=== PATIENT | female | born 1935 | race Caucasian/White ===

== ENCOUNTER 2017-05-18 11:34 | Emergency (ER) | payer MEDICARE, OTHER ==
[~2017-05-18] VITALS: Ht 157.5 cm; Wt 74.0 kg
[~2017-05-18 11:34] MED LIST: ASPIRIN EC81 MG PO; ATENOLOL50 MG PO; ATORVASTATIN CA40 MG PO; AUGMENTIN 875-1 EACH PO; CEPHALEXIN500 MG PO; ELIQUIS5 MG PO; FLUOXETINE HCL20 MG PO; FUROSEMIDE40 MG PO; ISOSORBIDE MON120 MG PO; LANOXIN125 MCG PO; LOPERAMIDE2 M1 PO; METOPROLOL SUC100 MG PO; NITROGLYCERIN0.4 MG SL; OMEPRAZOLE40 MG PO; POTASSIUM CHLOR8 MEQ PO; TRAMADOL HCL50 MG PO; VITAMIN D400 UNIT PO; VITAMIN D5000 UNIT PO
[2017-05-18] MEDS ORDERED: BUDESONIDE0.5 MG/2 M INH (11:47)
[2017-05-18] MEDS ORDERED: TORSEMIDE20 MG PO (11:48)
[2017-05-18] MEDS ORDERED: TRAZODONE HCL50 MG PO (11:48)
[2017-05-18] MEDS ORDERED: DIGITEK125 MCG PO (11:48)
[2017-05-18] MEDS ORDERED: ALBUTEROL2.5 MG/3 M INH (11:48)
[2017-05-18] MEDS ORDERED: PERFOROMIS20 MCG/2 M INH (11:49)
== END 2017-05-18 11:59 | disposition home or self-care (01) ==
LOC: ED 11:34
DX: M79.604 Pain in right leg (principal); Z00.8 Encounter for other general examination

== ENCOUNTER 2017-11-19 18:33 | Emergency (ER) | payer MEDICARE, OTHER ==
[~2017-11-19] VITALS: Ht 157.5 cm; Wt 73.9 kg
[~2017-11-19 18:33] MED LIST changes: +ALBUTEROL2.5 MG/3 M INH; +BUDESONIDE0.5 MG/2 M INH; +DIGITEK125 MCG PO; +PERFOROMIS20 MCG/2 M INH; +TORSEMIDE20 MG PO; +TRAZODONE HCL50 MG PO
[2017-11-19] MEDS ORDERED: KEFLEX500 MG PO (21:52)
--- NOTE | 2017-11-20 13:56 | EKG ---
[facility] [address] [place] [address] Signed Atrial fibrillation Right bundle branch block T wave abnormality, consider inferior ischemia Abnormal ECG When compared with ECG of 24-OCT-2016 19:49, T wave inversion no longer evident in Anterior leads Confirmed by MITESH GARCIA MD ([id number]) on 11/20/2017 1:56:31 PM Electronically Signed By: MITESH GARCIA MD 11/20/17 1356 PATIENT NAME: MAURICE JOLLEY Electrocardiogram DATE OF : 39 PHYSICIAN: MITESH GARCIA MD REPORT #: [id number] REPORT IS CONFIDENTIAL AND NOT TO BE RELEASED WITHOUT AUTHORIZATION
== END 2017-11-19 22:28 | disposition home or self-care (01) ==
LOC: ED 18:33
DX: N39.0 Urinary tract infection, site not specified (principal); R41.82 Altered mental status, unspecified; I10 Essential (primary) hypertension; E78.5 Hyperlipidemia, unspecified; K21.9 Gastro-esophageal reflux disease without esophagitis; I48.91 Unspecified atrial fibrillation; J44.9 Chronic obstructive pulmonary disease, unspecified; Z88.2 Allergy status to sulfonamides; Z88.5 Allergy status to narcotic agent; Z79.01 Long term (current) use of anticoagulants; Z79.899 Other long term (current) drug therapy
CPT/HCPCS: 36415; 70450; 71045; 74176; 80053; 81001; 85025; 85610; 85730; 87088; 93005; 93010; 96374; 99284; J0696

== ENCOUNTER 2017-12-23 23:54 | Emergency (ER) | payer MEDICARE, OTHER ==
[~2017-12-23] VITALS: Ht 157.5 cm; Wt 73.9 kg
[~2017-12-23 23:54] MED LIST changes: +KEFLEX500 MG PO
[2017-12-24] MEDS ORDERED: BISOPROLOL FUMAR5 MG PO (00:15)
[2017-12-24] MEDS ORDERED: ASPIR 8181 MG PO (00:15)
[2017-12-24] MEDS ORDERED: NORCO 5-325 TA1 EACH PO (00:53)
[2017-12-24] MEDS ORDERED: CEFUROXIME250 MG PO (14:21)
== END 2017-12-24 01:49 | disposition home or self-care (01) ==
LOC: ED 23:54
PROC: 2W3MX1Z Immobilization of Left Lower Extremity using Splint (ICD-10-PCS; principal; 2017-12-23)
DX: S52.502A Unspecified fracture of the lower end of left radius, initial encounter for closed fracture (principal); F03.90 Unspecified dementia, unspecified severity, without behavioral disturbance, psychotic disturbance, mood disturbance, and anxiety; I10 Essential (primary) hypertension; J44.9 Chronic obstructive pulmonary disease, unspecified; I48.91 Unspecified atrial fibrillation; Z88.2 Allergy status to sulfonamides; Z88.5 Allergy status to narcotic agent; Z88.8 Allergy status to other drugs, medicaments and biological substances; Z79.82 Long term (current) use of aspirin; Z79.899 Other long term (current) drug therapy; W19.XXXA Unspecified fall, initial encounter
CPT/HCPCS: 29125; 73110; 99283

== ENCOUNTER 2017-12-27 10:43 | Inpatient (IN) | payer MEDICARE, OTHER ==
[~2017-12-27] VITALS: Ht 157.5 cm; Wt 72.8 kg
[~2017-12-27 10:43] MED LIST changes: +ASPIR 8181 MG PO; +BISOPROLOL FUMAR5 MG PO; +CEFUROXIME250 MG PO; +NORCO 5-325 TA1 EACH PO
--- NOTE | 2017-12-27 15:46 | NUR ---
DAUGHTER AT BEDSIDE KEEPING PATIENT FROM PULLING AT CAST AND OTHER ITEMS. VERY RESTLESS. GRIMACE FROM LEFT ARM PAIN. ATTENDS IN PLACE. SOCIAL GROUP WORKER ON RIGHT HAND. 100% ON 1L 02. SOFT FOOD ORDERED FROM KITCHEN. TOP DENTURES MISSING. LR @ 75 INFUSING.
--- NOTE | 2017-12-27 16:35 | NUR ---
2PA TRANSFER TO BSC. DIFFICULTY FOLLOWING DIRECTIONS. PATIENT CHATTERING RANDOM SAYINGS CONSISTENTLY. C/O PAIN IN LEFT ARM. GIVEN TYLENOL. WILL GIVE TRAMADOL. ABLE TO URINATE ON BSC SUCCESSFULLY. NEW ATTENDS PLACED. NYSTATIN CREAM APPLIED TO GROIN.
--- NOTE | 2017-12-27 16:59 | NUR ---
pt becoming increasingly agitated and restless. 0.5mg ativan given IV for anxiety. hospitalist aware. patient tearful. multiple family members in room assisting with patient. patient pulling at wrapping of cast and other dressings. trying to get oob.
--- NOTE | 2017-12-27 17:51 | NUR ---
PATIENT HAS SEVERE DEMENTIA. 1:1 WITH FAMILY OR STAFF. PULLS AT ALL DRESSING, TUBING, ETC. FROM [facility]. WILL NEED MORE INTENSIVE SNF AT D/C. LR @ 75. LEFT ARM IN CAST D/T FRACTURE. PULLS AT CAST WRAPPING. ROOM AIR NOW. REGULAR DIET- SOFT FOOD D/T UPPER DENTURES NOT IN. FEEDER. YEAST INFECTION IN GROIN. NYSTATIN CREAM AT BEDSIDE. PLAN FOR SURGERY FRIDAY BY DR LENZ ON LEFT ARM. KARRIE ACOSTA, ANTONIO, AND VICENTA GIVEN.
--- NOTE | 2017-12-27 18:29 | NUR ---
FAMILY REPORTS PATIENT MORE MANAGEABLE NOW. STILL RESTLESS.
--- NOTE | 2017-12-27 19:10 | NUR ---
bedside report from larissa cha. family in rm and introduced. white board updated, and pt bed alarm on, she has eyes closed and is restless in bed, iv r arm wrapped and fusing on pump, left arm pwd- good cms - melinda wraped in cast for pre hospital left arm fx. pt has dementia and in facility - appears obtunded - family warning this rn that pt is very restless at night and to call them if neede. directly visualized at the desk, and alarm on - appears comfortable at this time. attends clean and dry.
--- NOTE | 2017-12-27 22:02 | NUR ---
DISCUSSED WITH ANALYTICAL SCIENCES DIRECTOR EDDIE - PT RRR, EYES CLOSED - HOLDING PO MEDS UNTIL PT MORE AWAKE.
--- NOTE | 2017-12-27 22:22 | NUR ---
CHARGE NURSE ROUNDING NOTE: PT RESTING, EYES CLOSED, RANJAN, NO DISTRESS NOTED BED ALARM ON, ON ROOM AIR
--- NOTE | 2017-12-27 23:30 | NUR ---
ONEIDA LINCOLN AND I HELPED PATIENT USE THE COMMODE. 2 PA. PATIENT VOIDED. PATIENT IS BACK IN BED. BED ALARM ON. CALL LIGHT WITHIN REACH.
--- NOTE | 2017-12-27 23:45 | NUR ---
pt restless, spilled water - cleaned and new dry linens- pt mumbling unconsolable. trying to chew her o2 sat finger probe. pulling her left arm melinda wrap and cast... denies needs. ativan iv given for agitation - bed alarm on.
--- NOTE | 2017-12-28 01:20 | NUR ---
PT SETTLED DOWN, EYES CLOSED, RRR. CALL LIGHT IN REACH BED ALARM ON, VISIBLE FROM RN STATION.
--- NOTE | 2017-12-28 06:26 | NUR ---
pt restless, 2 person assist to bsc to void. pt mumbles,eyes open - left arm pwd. bed made and back to bed with call light and bed alarm.
--- NOTE | 2017-12-28 07:00 | NUR ---
REPORT RECEIVED FROM SALAZAR AT THIS TIME, PATIENT IS RESTING IN BED WITH HOB ELEVATED, ALARM ON THE BED REMAINS ON AND RAILS ARE ALL UP
--- NOTE | 2017-12-28 08:30 | NUR ---
PATIENT WAS A 1 PERSON PIVOT TO THE COMMODE, SHE VOIDED 300MLS OF YELLOW URINE. MANSI CARE DONE AND PATIENT ASSISTED BACK TO BED, RAILS ALL UP AND ALARM BACK ON THE PATIENT. PATIENT GIVEN AM MEDICATION CRUSHED IN APPLESAUCE AND SHE TOOK ALL OF THEM WITHOUT ANY TROUBLE. PATIENT HAS A DAUGHTER AT THE BEDSIDE THAT HELPED WITH FEEDING THE PATIENT THIS AM.
--- NOTE | 2017-12-28 09:01 | NUR ---
PATIENT PULLING AT HER LEFT ARM, SHE IS NON VERBAL BUT PAIN SCALE SHOWS PAIN LEVEL CURRENTLY AT A 4/10, PATIENT GIVEN 1 NORCO PO FOR PAIN COVERAGE AT THIS TIME.
--- NOTE | 2017-12-28 09:29 | NUR ---
PATIENT 1 PERSON ASSIST UP TO THE COMMODE, PATIENT VOIDED 200MLS OF CLEAR YELLOW URINE.
--- NOTE | 2017-12-28 09:45 | NUR ---
PATIENT PULLED OFF HER SPLINT TO THE LEFT ARM, DOCTOR NICOLE NOTIFIED AND NEW ONE PLACED ON THE PATIENT AT THIS TIME.
--- NOTE | 2017-12-28 10:06 | NUR ---
PATIENT'S SHOWER DONE AT THIS TIME AND LINEN CHANGED, MANSI CARE DONE AND NYSTATIN CREAM APPLIED TO TO THE MANSI AREA.
--- NOTE | 2017-12-28 10:37 | NUR ---
TELE REMOVED AT THIS TIME
--- NOTE | 2017-12-28 11:52 | NUR ---
PATIENT WAS A 2 PERSON ASSIST TO THE BEDSIDE COMMODE AT THIS TIME, SHE HAD A FEAR OF FALLING AND WAS NOT TOLERANT OF THE TRANSFER TO THE COMMODE. PATIENT GIVEN 1 NORCO PO FOR PAIN AT THIS TIME
--- NOTE | 2017-12-28 11:58 | NUR ---
SCD'S PLACED ON THE PATIENT AT THIS TIME, IV FLUID RATE DECREASED TO 15 MLS/HR
--- NOTE | 2017-12-28 12:17 | NUR ---
PATIENT VERY TEARFUL AND LIVING IN THE PAST CURRENTLY, SHE KEEPS STATING THAT SHE IS SCARED, PATIENT GIVEN ATAIVN 0.5MG IV AT THIS TIME.
--- NOTE | 2017-12-28 15:50 | NUR ---
CARE ASSUMED OF PT. PT 2PA TO [facility] TRANSFER. PT VOIDED AND ASSISTED BACK TO BED. PT VERY ANXIOUS AT THIS TIME, CALLING OUT AND KEEPS TRYING TO PUT LEGS OVER EDGE OF THE BED. PT MEDICATED WITH NORCO AND ATIVAN. PT DAUGHTERS AT BEDSIDE SOOTHING PT. BED ALARM ON.
--- NOTE | 2017-12-28 17:30 | NUR ---
PT IN BED, DAUGHTERS AT BEDSIDE. PT DAUGHTER ROCIO HELPING FEED PT DINNER. BED ALARM ON.
--- NOTE | 2017-12-28 19:55 | NUR ---
pt up to bedside commode with 2 person assist. pt fidgeting arms and appears anxious. Pt requires frequent quing and does not follow directions. pt has small amount of urine output. and is assisted back into bed. Pt disorented and does not answere questions appropriatley. pt begans to take melinda wrap bandage off of left arm so it was rewrapped and pt was redirected. pt given fresh water. bed alarm on and pt is in view of [facility] station. pt assessment completed.
--- NOTE | 2017-12-28 20:14 | NUR ---
pt remains fidgeting and shifts weight back and forth and mumbles unintelligably. prn ativan 0.5 mg administered slow ivp.
--- NOTE | 2017-12-28 20:45 | NUR ---
pt still fidgeting in bed and now grimmacing. pt appears to be in pain. prn ultram 50mg and prn tylenol 650mg administered at this time. erin remains at bedside sitting with patient.
--- NOTE | 2017-12-28 21:40 | NUR ---
PT RESTING ON LEFT LATERAL SIDE, EYES CLOSED AND PT APPEARS TO BE IN NO ACUTE DISTRESS. NO FACIAL GRIMMACE NOTED. PT IN VIEW OF NURSING STATION.
--- NOTE | 2017-12-28 22:40 | NUR ---
PT RESTING SUPINE IN BED, EYES CLOSED AND RESPIRATIONS EVEN AND UNLABORED AT 16. PT APPEARS TO BE SLEEPING COMFORTABLY. PT IN VIEW OF NURSING STATION.
--- NOTE | 2017-12-29 00:30 | NUR ---
PT RESTING IN BED, RESPIRATIONS EVEN AND UNLABORED. PT APPEARS TO BE SLEEPING COMFORTABLY. PT IN VIEW OF NURSES STATION.
--- NOTE | 2017-12-29 02:20 | NUR ---
PT RESTING IN BED, RESPIRATIONS EVEN AND UNLABORED AT 20. PT APPEARS TO BE SLEEPING COMFORTABLY AND REMAINS IN VIEW OF NURSING STATION.
--- NOTE | 2017-12-29 03:11 | NUR ---
pt in bed restless, mumbling unintelligably and shifting back and forth in bed. PRN ativan 0.5mg administered for anxiety.
--- NOTE | 2017-12-29 03:45 | NUR ---
pt restless sitting up in bed and grasping left arm. Pt given prn norco 5/325 x 2 tabs crushed in pudding. Lights off for comfort, bed alarm on and pt remains in view of nurses station.
--- NOTE | 2017-12-29 05:04 | NUR ---
PT SLEPT THROUGH MOST OF THE NIGHT. PT RECEIVED PRN IV ATIVAN FOR ANXIETY AND PRN PO PAIN MEDICATION. PT TAKES PO MEDS CRUSED IN PUDDING WITH SIPS OF WATER. PT HAS BEEN CONFUSED AND WAS FREQUENTLY REORIENTED WHEN AWAKE. LR HAS REMAINED TKO. PT AMBULATED TO BEDSIDE COMMODE SEVERAL TIMES WITH TWO PERSON ASSIST.
--- NOTE | 2017-12-29 07:37 | EKG ---
[facility] [address] [place], [place] [address] Signed Atrial fibrillation Right bundle branch block Abnormal ECG When compared with ECG of 24-DEC-2017 14:10, No significant change was found Confirmed by JAZZ RIVERA MD ([id number]) on 12/29/2017 7:37:32 AM Electronically Signed By: JAZZ RIVERA MD 12/29/17 0737 PATIENT NAME: MAURICE JOLLEY Electrocardiogram DATE OF : 39 PHYSICIAN: JAZZ RIVERA MD REPORT #: [id number] REPORT IS CONFIDENTIAL AND NOT TO BE RELEASED WITHOUT AUTHORIZATION
--- NOTE | 2017-12-29 08:53 | NUR ---
MORNING ASSESSMENT AND MEDICATIONS DUE. THIS RN TO BEDSIDE. MD AT BEDSIDE ASSESSING PT. PT RESTLESS AND MOANING IN BED. ASSESSMENT DONE. MEDICATIONS GIVEN (SEE MAR), DAUGHTER ABLE TO FEED PT MEDICATIONS, GIVEN WITH PUDDING. PT ASSISTED UP TO COMODE. BED BATH DONE. NEW GOWN AND LINEN CHANGE DONE. MANSI CARE DONE. PT BACK TO BED. DAUGTHER UPDATED WITH PLAN OF CARE. BED RAILSUP. SIDE RAIL GUARDS IN PLACE. BED ALARM ON.
--- NOTE | 2017-12-29 10:00 | NUR ---
PATIENT HAS DEMENTIA AND IS UNABLE TO ANSWER QUESTIONS. STAFF IN ROOM WITH PATIENT FOR SAFETY. PT IS NON-VERBAL AT THIS TIME.
--- NOTE | 2017-12-29 10:02 | NUR ---
THIS RN TO ROOM TO CHECK ON PT. PT CONTINUES TO SHOW FACES PAIN SCALE OF 7/10. DAUGHTER AT BEDSIDE. DAUGHTER AGREES THAT PT NEEDS PAIN MEDICATION. NORCO GIVEN. ATAVAN GIVEN FOR RESTLESSNESS. PT CONTINUES TO ATTPENT TO CLIMB OUT OF BED. VERY DIFFICULT TO CONSOLE. MD CONSULTED. MD STATES TO GIVEN AN EXTRA 0.5 OF ATAVAN NOW. GIVEN ORDERED. PT BEGINS TO RELAX. DAUGHTER AT BEDSIDE. BED RAILS UP. PILLOWS AND SIDE RAIL CUSION IN PLACE.
--- NOTE | 2017-12-29 10:56 | NUR ---
THIS HYDRAULIC RIVETER AND MATTHEW WELLS ASSISTED TO CHANGE PATIENT'S ATTENDS AND LINENS. MATTHEW WELLS PERFORMED PERICARE AND SKINCARE. PATIENT DRESSED IN CLEAN GOWN. PATIENT CALL LIGHT IN REACH, NO OTHER NEEDS AT THIS TIME.
--- NOTE | 2017-12-29 12:00 | NUR ---
ASSESSMENT DUE. THIS RN TO ROOM. PT DAUGHTER AT BEDSIDE. PT APPEARS MORE COMFORTABLE, MINIMIAL GROANING AND AGGITATION NOTED. PT REFUSING FOOD, SPITTING OUT WHAT DAUGHTER FEEDS HER. ASSESSMENT DONE. BED RAILS UP. CALL LIGHT WITHIN REACH.
--- NOTE | 2017-12-29 12:38 | NUR ---
PT CALL LIGHT ON. PTS DAUGHTER STATES PT NEEDS UP TO RESTROOM. THIS RN AND PERSONNEL TECHNICIAN, KINZA TO PTS ROOM. PT ASSISTED UP TO COMODE. PT VOIDS. DEPENDS CHANGED. PT TRANSFERED TO CHAIR. CHAIR ALARM ON. PT APPEARS CONTENT. NO MOANING OR FIGGITING NOTED. PERSONNEL TECHNICIAN WORKING WITH PT. DAUGHTER AT BEDSIDE NO ADDITIONAL REQUESTS OR COMPLAINTS.
--- NOTE | 2017-12-29 13:23 | NUR ---
DAUGHTER LEAVING BEDSIDE. DAUGHTER REQUESTS LORAZAPAM FOR PT AGGITATION. SEE MAR FOR MEDICATION GIVEN. PT UP TO CHAIR. APPEARS AGGITATED BUT COMFORTABLE. CALL LIGHT WITHIN REACH. CHAIR ALARM ON. DOOR AND CURTAIN OPEN FOR EASY VIEW FROM NURSES STATION.
--- NOTE | 2017-12-29 14:52 | NUR ---
PT ADMINISTERED TWO TABS NORCO AT THIS TIME PT SCORES 7/10 ON NON-VERBAL PAIN SCALE. PT ABLE TO TAKE PILLS WHOLE WITH PUDDING
[2017-12-29] MEDS ORDERED: QUETIAPINE FUMA50 MG PO (16:13)
[2017-12-29] MEDS ORDERED: LORAZEPAM2 MG PO (16:14)
[2017-12-29] MEDS ORDERED: LOPERAMIDE2 M1 PO (16:51)
[2017-12-29] MEDS ORDERED: TYLENOL325 MG PO (16:51)
--- NOTE | 2017-12-29 16:55 | NUR ---
MED REC COMPLETE
--- NOTE | 2017-12-29 17:14 | NUR ---
SPOKE WITH DAUGHTER IN PATIENTS ROOM. PATIENT IS UNABLE TO ANSWER ANY QUESTIONS. DAUGHTER STATES PATIENT HAS DEMENTIA. SHE WAS [facility]NG [facility] AND WAS MOVED TO [facility] FOUR MONTHS AGO. HAS BEEN IN A STEADY DECLINE. PATIENT RECENTLY HAS GONE FROM WALKER TO WHEELCHAIR. HAS HAD SEVERAL FALLS. SHE STATES SHE HAS ARRANGED FOR PATIENT TO MOVE TO A [facility] A DEMENTIA SENIOR LIVING. THEN PATIENT FELL AND WAS BROUGHT HERE WITH THE INJURY. SHE STATES SHE HAS SPOKEN TO THEM, THEY STATE SHE WILL HAVE A ROOM THERE AFTER SURGERY AND REHAB IF IT IS STILL AVAILABLE. DAUGHTER IS UNDERSTANDS PATIENT WILL PROBABLY NEED A SKILLED FACILITY POST OP. SHE STATES SHE WOULD USE [facility] IT IS CLOSE TO HER.
--- NOTE | 2017-12-29 18:11 | NUR ---
patient agitated at times throughout the day. rests on and off. family in room intermittently. 2pa transfers from BSC to bed, and chair. LR @ 15ml/hr. surgery planned for tomorrow at 1030. NPO at midnight.
--- NOTE | 2017-12-29 19:02 | NUR ---
report received from ONEIDA Herrmann. Pt resting in bed with her daughter at bedside. pt appears to be resting in bed comfortably. No facial grimmace. no needs voiced at this time. Pt remains in view of nurses station and bed alarm remains on.
--- NOTE | 2017-12-29 20:41 | NUR ---
IV BOLUS COMPLETE. MAINTENANCE FLUIDS INITIATED. PT RESTING IN BED WITH EYES CLOSED. RESPIRATIONS EVEN AND UNLABORED. PT APPEARS TO BE SLEEPING. CALL LIGHT WITHIN REACH. BED ALARM ACTIVATED. ROOM WITHIN VIEW OF NURSES STATION WITH CURTAIN OPEN.
--- NOTE | 2017-12-29 22:10 | NUR ---
pt resting in bed, respirations even and unlabored at 20, eyes closed. Pt appears to be sleeping comfortably. Pt remains in view of nursing station.
--- NOTE | 2017-12-30 00:26 | NUR ---
in to assist pt to bedside commode with two person assist. pt IV site appears to be soiled. IV site care provided and dressing changed. IV patent and does not appear to be leaking, no redness/swelling noted to site. pt voided 150mls of clear yellow urine. pt was grimmacing, moining intermittently and grasping left arm so prn iv dilaudid was administered. pt remains in view of nursing station.
--- NOTE | 2017-12-30 00:37 | NUR ---
pt has had 150mls out in last 6hrs Dr Schuler notified and no new orders received. vs's stable.
--- NOTE | 2017-12-30 04:19 | NUR ---
PT RESTING IN BED, EYES CLOSED AND RESPIRATIONS EVEN AND UNLABORED. PT APPEARS TO BE RESTING COMFORTABLY AND REMAINS IN VIEW OF NURSING STATION.
--- NOTE | 2017-12-30 05:02 | NUR ---
PT HAS APPEARED TO BE SLEEPING COMFORTABLY MOST OF NIGHT. PT HAD 150MLS OUT THIS SHIFT. DR GARCIA WAS NOTIFIED OF THIS AND WOULD LIKE TO BE NOTIFIED IF VITAL SIGNS FALL OUT OF NORMAL LIMITS. VS'S HAVE REMAINED STABLE FOR PATIENT. PT IS TWO PERSON ASSIST TO BEDSIDE COMMODE. PT HAS BEEN NPO SINCE MIDNIGHT AND IS SCHEDULED FOR SURGERY AT 1030.
--- NOTE | 2017-12-30 07:58 | NUR ---
pt up to commode now. family at bedside. preparing patient for surgery. will give scheduled medication before surgery.
--- NOTE | 2017-12-30 08:45 | NUR ---
MATTHEW HUTCHINS ASSISTED PT TO SITTING POSITION ON FLOOR. FAMILY IN ROOM AND AWARE PT WANTED TO SIT ON FLOOR, RATHER THAN LET HER FALL PERFORATOR LOADER HELPED HER DOWN. THIS RN ASSISTED PERFORATOR LOADER AND PT TO STAND AND THEN SIT ON EDGE OF BED. PT UPSET AND PULLING AT CASTING. ADMINISTERED SMALL DOSE OF IV DILAUIDID AND PT CALMED DOWN AFTER APPROX 15 MIN. PT NOW RESTING IN BED WITH FAMILY IN ROOM.
--- NOTE | 2017-12-30 09:06 | NUR ---
PT SITTING AT BEDSIDE WITH MULTIPLE FAMILY MEMBERS PRESENT. ANCEF RECORD PRESS TENDER TO OR. DILAUDID IV GIVEN AT 0840. PT SOMEWHAT RESTLESS NOW.
--- NOTE | 2017-12-30 09:24 | NUR ---
THIS CNA2 HELPED PT TO THE BSC 3 TIME. PT BECAME VERY ADDITATED. STOOD UP AND SIT DOWN SEVERAL TIMES ON THE BED. THIS CNA2 ASSISTED THE PT SLIDE DOWN TO SIT ON THE FLOOR. THEN ONEIDA KIM AND THIS CNA2 HELPED HER STAND BACK UP AND GET IN THE BED
--- NOTE | 2017-12-30 10:49 | NUR ---
PT OFF FLOOR AT 1030 WITH CLARK MOHAMUD. LES TAPED TO LR BAG. DAUGHTER CALLED TO MEET PATIENT AND NURSE IN DAY SURGERY.
--- NOTE | 2017-12-30 13:15 | NUR ---
12/30/17 1315 Brooke Hunter 1302 PT ARRIVED IN PACU WITH ORAL AIRWAY IN PLACE. REU. L ARM ELEVATED ON PILLOWS.
--- NOTE | 2017-12-30 14:15 | NUR ---
PT TRANSFERRED TO BED WITH 3PA. PT RESTING COMFORTABLY NOW. LEFT ARM ELEVATED ON PILLOW. 5 DAUGHTERS IN ROOM. 2L [address] 02 SATS 88% ON ROOM AIR ON ARRIVAL. BP SLIGHTLY ELEVATED.
--- NOTE | 2017-12-30 14:30 | NUR ---
MET WITH DAUGHTER PLACIDO AND SEVERAL OF HER SISTERS IN THE PT ROOM AND A DISCUSSION WAS AGAIN HELD ABOUT PT GOING TO A SNF BEFORE GOING TO [place] TO AN ASSISTED LIVING FACILITY. PLACIDO STATED THAT GOING TO [facility] WOULD BE FINE WITH HER WHEN HER MOTHER IS READY FOR DC.
--- NOTE | 2017-12-30 14:41 | NUR ---
pt sat up in bed and tried to get up. 2pa transfer to commode. urinated. family concerned that urine smell is strong and patient may have UTI. 2l o2 removed to transfer to commode. back to bed now to rest.
--- NOTE | 2017-12-30 14:53 | NUR ---
VISITED WITH PT'S DAUGHTER SHE WAS WAITING DURING SURGERY. SHE IS RATHER CONCERNED ABOUT HOW WELL HER MOTHER WILL DO COMING OUT OF SURGERY. THERE ARE OTHER FAMILY PRESENT, AND SEEM CONCERNED WELL. FOLLOWING SURGERY, FAMILY WERE ENCOURAGED TO HOW WELL SURGERY WENT, ACCORDING TO DR LENZ. WILL CONTINUE TO FOLLOW NEEDED
--- NOTE | 2017-12-30 18:15 | NUR ---
2L 02 VIA NC AFTER SURGERY. LEFT ARM IN SPLINT. DILAUDID 0.25MG GIVEN AT 1545. D5LR @ 50. AXILLARY BLOCK IN LEFT ARM. 2PA TRANSFER TO BSC OR CHAIR. REGULAR DIET-- ADVANCE TOLERATED. SLEEPING AFTER SURGERY. LEFT ARM WRAPPED WITH ORTHOGLASS, CAST PAD, CHELSEY WRAP. UA SENT.
--- NOTE | 2017-12-30 19:03 | NUR ---
BEDSIDE REPORT RECEIVED FROM ONEIDA CHAMBERS. PT AWAKE, SITTING UP IN BED, BED ALARM IN PLACE. PT ON 2L OXYGEN BY NC. IVF INFUSING WNL. LEFT ARM WARM TO TOUCH, CAP REFILL <3. WILL CONTINUE TO MONITOR.
--- NOTE | 2017-12-30 21:25 | NUR ---
CHECKED ON PT, APPEARS TO BE SLEEPING, VISIBLE CHEST RISE, EYES CLOSED. BED ALARM ON.
--- NOTE | 2017-12-30 23:00 | NUR ---
PT SLEEPING, AWAKENS EASILY. 2PA WITH NAIMA STARK AND ARIA TO BSC FOR VOID. PT NON-COMMUNICATIVE. TRANSFER BACK TO BED, SCDS ON. PTS LUNGS CLEAR THROUGHOUT ALL LOBES, HR IRREGULAR RHYTHM. CSM INTACT BUE, IV SITE FLUSHED WNL. IV IN RIGHT FOREARM D/C'D LEAKING. BED ALARM ON. PT ABLE TO SWALLOW PO MEDICATION WITH WATER. CURTAIN OPEN FOR VIEW FROM NURSES STATION, LIGHTS OFF IN ROOM.
--- NOTE | 2017-12-31 01:35 | NUR ---
PT ATTEMPTING TO GET OUT OF BED. 2PA TO BSC FOR VOID. NEW BED IN ROOM AT THIS TIME ALARM DID NOT SOUND UNTIL PT STANDING. 2PA BACK TO BED. 2L OXYGEN BY NC ON. PT ANXIOUS, PRN ATIVAN ADMINISTERED. MATTHEW KNAPP REMAINS IN ROOM FOR PT COMFORT. IVF INFUSING WNL.
--- NOTE | 2017-12-31 03:20 | NUR ---
PT CALLING OUT, "HELP". IN PT ROOM, PT HOLDING LEFT ARM UP IN AIR, PRN NORCO ADMINISTERED FOR PAIN. BUE WARM TO TOUCH, CAP REFILL <3 BILATERALLY UPPER AND LOWER EXTREMITIES. IVF INFUSING WNL. LUNGS CLEAR THROUGHOUT ALL LOBES, HR IRREGULAR RHYTHM. PT GIVEN SIPS OF ICE WATER. BED ALARM ON. CURTAIN OPEN FOR VIEW FROM NURSES STATION.
--- NOTE | 2017-12-31 05:04 | NUR ---
BED ALARM IN PLACE THROUGHOUT SHIFT. 2PA TO [place] TO [facility] [place]. PT SPEECH GARBLED, INCOMPREHENSIBLE, HX DEMENTIA. PRN PAIN MEDICATION ADMINISTERED X 1, PRN ATIVAN X 1 FOR AGITATION. LEFT WRIST IN CAST, CSM INTACT. IVF INFUSING THROUGHOUT SHIFT WNL. PT ON 2L OXYGEN BY NC WITH SLEEP. NO INCONTINENCE THIS SHIFT. PT FOLLOWING SOME COMMANDS, COOPERATIVE. SCDS IN PLACE TOLERABLE.
--- NOTE | 2017-12-31 05:22 | NUR ---
CHECKED ON PT, APPEARS TO BE SLEEPING, EYES CLOSED, HOB ELEVATED, BREATHING VISIBLE ON 2L OXYGEN BY NC. BED ALARM ON.
--- NOTE | 2017-12-31 07:25 | NUR ---
MD PHONED, NOTIFIED PT BEING COMBATIVE, CONFUSED, IV INFILTRATED. TELEPHONE ORDERS RECEIVED AND READ BACK. MEDICATIONS ADMINISTERED. OKAY PER MD TO HOLD IVF AND LEAVE OUT IV FOR NOW.
--- NOTE | 2017-12-31 07:46 | NUR ---
TALKED WITH IVA AT [facility], CHART NOTES FAXED TO FACILITY INCLUDING FACESHEET, ER NOTES, H AND P, OP NOTE, PROG NOTES, IMAGING, PT AND OT EVALS. THEY WILL LET US KNOW.
--- NOTE | 2017-12-31 07:53 | NUR ---
PATIENT CONTINUES TO BE AGITATED AND AGRESSIVE AFTER MULITPLE INTERVENTIONS. PATIENT IS HITTING, BITING, AND SCRATCHING. PLACED CALL TO MD. KENNY VERBAL ORDERS RECEIVED. ORDERS VERIFIED USING THE READBACK METHOD. WILL PUT ORDERS INTO PLACE.
--- NOTE | 2017-12-31 07:54 | NUR ---
PATIENT GIVEN PRN MEDICATIONS PER ORDER. EMPLOYMENT LAW ATTORNEY AND RN IN THE ROOM.
--- NOTE | 2017-12-31 08:30 | NUR ---
PT INCREASINGLY AGITATED AT SHIFT CHANGE, IM LORAZEPAM X2 DID NOT ALLEVIATE ANXIETY, NOTIFIED PROVIDER, VERBAL ORDER FOR 5MG IM HALDOL, ADMINISTERED ORDERED. PT DAUGHTER AT BEDSIDE, PT IS NOTICABLY CALMER. PT HAD SIGNIFICANT DIFFICULTY TAKING PILLS IN PUDDING, ONE AT A TIME, SPIT OUT HALF OF MEDICATIONS ADMINISTERED. PT ALSO APPEARED TO STRUGGLE AND CHOKE, GIVEN WATER AND FAMILY REQUESTED THAT NO ADDITIONAL PILLS BE GIVEN. PT UP TO COMMODE TO HAVE A BOWEL MOVEMENT WITH 2 PERSON ASSIST. PT HAS NO IV ACCESS, NOTIFIED PROVIDER. WILL CONTINUE TO MONITOR.
--- NOTE | 2017-12-31 09:03 | NUR ---
THIS PRECIPITATE WASHER ASSISTED RN'S WITH PATIENT REORIENTING. PATIENT CONFUSED AND AGITATED. RN AND FAMILY IN ROOM.
--- NOTE | 2017-12-31 10:25 | NUR ---
in with pt and her daughter chapincito. pt in and confused. pt agitated, and restless.
--- NOTE | 2017-12-31 12:37 | NUR ---
PT UP TO COMMODE WITH X2 ASSIST, GAVE SUPPOSITORY AND MINERAL OIL ENEMA. NO BM WITH ATTEMPT. PT RETURNED TO BED, RN AT BEDSIDE TO ENSURE SAFETY. BED ALARM ON. PT HAS MILD AGITATION AND BASELINE CONFUSION. WILL CONTINUE TO MONITOR.
--- NOTE | 2017-12-31 13:28 | NUR ---
PT SITTING UP IN RECLINER. SHE IS RESTLESS, MATTHEW WELLS SITTNG WITH PT AT THIS TIME
--- NOTE | 2017-12-31 13:30 | NUR ---
CALLED DR LENZ AND LEFT MESSAGE. PT HAS REMOVED OUTER DRESSING TO BANDAGE AND HAS BEEN MOVING ARM. RETORT PRESS OPERATOR REPORTS THAT INCISION WAS NOT TOUCHED. REWRAPPED, WILL CONTINUE TO MONITOR.
--- NOTE | 2017-12-31 13:47 | NUR ---
DR LENZ AT BEDSIDE, TREE SAPPER REPORTED THAT DR LENZ IS NOT CONCERNED IF PT RIPS OFF SPLINTING. NO NEW ORDERS WRITTEN. PT REPEATEDLY UP TO COMMODE FOR BM, NO BM SUCCESSFUL YET THIS SHIFT. WILL CONTINUE TO MONITOR.
--- NOTE | 2017-12-31 13:50 | OR ---
[facility] [address] [place], [place] [address] Signed DATE OF OPERATION: 12/30/2017 SURGEON: Mary Kate Lenz MD PREOPERATIVE DIAGNOSIS: Colles fracture left wrist. POSTOPERATIVE DIAGNOSIS: Colles fracture left wrist. PROCEDURE: Open reduction and internal fixation. ANESTHESIA: General. SPECIMENS: There were no specimens. COMPLICATIONS: None. TOURNIQUET TIME: About 40 minutes. WHAT WAS DONE: The patient was taken to the operating room. After anesthesia was induced and airway secured, the patient was positioned prepped and draped in a routine sterile fashion. The left arm was exsanguinated with Esmarch bandage. Pneumatic tourniquet about the upper arm was inflated to 250 mmHg pressure. A volar incision was then made over the wrist beginning at the distal wrist flexion crease extending proximally for about 6 cm in line with the FCR tendon. Skin was divided sharply. Hemostasis was achieved with bipolar cautery. We then opened the FCR tendon sheath, first on the volar, and then on the dorsal side. All the volar contents were then swept in an ulnar direction and a small portion of the pronator was released. The fracture was identified and then reduced under direct vision. We then used an 8 x 3 distal volar radial plate secured proximally with 3, 2.7 mm screws, and then distally with one locking screw and 3 buttress pins. AP and lateral fluoroscopy then confirmed excellent alignment and position of the fracture fragments, and the internal fixation devices. The wound was gently irrigated, and then closed in a standard fashion. A sterile dressing and a volar Electronically Signed By: MARY KATE LENZ MD 12/31/17 1350 PATIENT NAME: MAURICE JOLLEY OPERATIVE REPORT DATE OF : 39 REPORT #: [id number] PHYSICIAN: MARY KATE LENZ MD PCP: TATIANA YANES REPORT IS CONFIDENTIAL AND NOT TO BE RELEASED WITHOUT AUTHORIZATION [facility] [address] [place], [place] [address] Signed splint were applied. The patient was awakened, and taken to the recovery room where she arrived in stable condition. Counts were correct and antibiotic protocols were followed. Mary Kate Lenz MD WFB/MODL /[id number] Copies: ~ Electronically Signed By: MARY KATE LENZ MD 12/31/17 1350 PATIENT NAME: MAURICE JOLLEY OPERATIVE REPORT DATE OF : 39 REPORT #: [id number] PHYSICIAN: MARY KATE LENZ MD PCP: TATIANA YANES REPORT IS CONFIDENTIAL AND NOT TO BE RELEASED WITHOUT AUTHORIZATION
--- NOTE | 2017-12-31 15:11 | NUR ---
PT RESTING AT BEDSIDE, NO DISTRESS. PT HAS HAD ONE VERY SMALL BOWEL MOVEMENT AND RETURNED TO BED. BED ALARM ON. NO CHANGE IN CONDITION, WILL CONTINUE TO MONITOR.
--- NOTE | 2017-12-31 17:51 | NUR ---
NOTIFIED DR GARCIA THAT PT HAS HAD VERY LITTLE URINE OUTPUT THIS SHIFT AND A FEW SMALL BOWEL MOVEMENTS. WILL ENCOURAGE PT INTAKE WHEN PATIENT IS MORE AWAKE AND ALERT. NO NEW ORDERS WRITTEN.
--- NOTE | 2017-12-31 17:57 | NUR ---
PT HAS HAD SOME SIGNIFICANT ANXIETY AND AGITATION THIS MORNING, PT HAS RESTED AND REMAINED SOMEWHAT CALM THIS AFTERNOON. MEDICATIONS HAVE BEEN CHANGED TO ACCOMODATE SWALLOWING/POCKETING ISSUES. NO IV ACCESS. PT HAS SCHEDULED LORAZEPAM, WHICH HAS BEEN HELPFUL FOR AGITATION. FAMILY WAS AT BEDSIDE THIS AM AND SPOKE WITH CATALYST RECOVERY OPERATOR. PT CONFUSION REMAINS UNCHANGED THROUGHOUT SHIFT. BOWEL PROTOCOL USED WITH ENEMA AND SUPPOSITORIES, A FEW SMALL BM IN BSC TODAY. PT IS A 2 PERSON ASSIST, AND HAS SIGNIFICANT ISSUES WITH TRANSFERRING.
--- NOTE | 2017-12-31 19:05 | NUR ---
BEDSIDE REPORT RECEIVED FROM ONEIDA RICHARDS. PT HAS REMOVED CAST FROM LEFT ARM, REAPPLIED AT THIS TIME. PT ON ROOM AIR. NO IV ACCESS. PT LYING IN BED, AWAKE, HOB ELEVATED, PT CONTINUES TO PULL AT LEFT WRIST DRESSING. CURTAIN OPEN FOR VIEW FROM NURSES STATION, CLOSE MONITORING FOR PT SAFETY. BED ALARM ON.
--- NOTE | 2017-12-31 19:48 | NUR ---
PT INCONTINENT OF STOOL, SMALL AMT HARD STOOL WITH LIQUID STOOL. RNS IN ROOM CHANGING PT. BED ALARM ON.
--- NOTE | 2017-12-31 22:00 | NUR ---
IN PT ROOM FOR [employer], PT ASSESSMENT. PT DROWSY, CONTINUES TO BE RESTLESS PULLING AT LEFT WRIST BANDAGE. PT ABLE TO SWALLOW LIQUID MEDIATIONS WNL. PO MEDICATIONS HELD FOR PT SAFETY. PT ABLE TO DRINK 100 MLS OF CRANBERRY JUICE WITH WATER. LUNGS CLEAR THROUGHOUT ALL LOBES. CSM INTACT BUE, BLE. SCDS OFF FOR PT COMFORT, DECREASE AGITATION. PT INCONTINENT OF SOFT STOOL, CHANGED WITH RN EDDIE ASSIST. BRUISING NOTED ON BUTTOCKS. REPOSITIONED WITH PILLOWS UNDER RIGHT SIDE. PRN PAIN MEDICATION ADMINISTERED. PT APPEARS COMFORATBLE AT THIS TIME.
--- NOTE | 2018-01-01 00:14 | NUR ---
PT APPEARS TO BE SLEEPING, EYES CLOSED, RR 22, PT APPEARS COMFORTABLE, LEGS AND ARMS RELAXED AT THIS TIME. LIGHTS OFF IN ROOM. BED ALARM ON.
--- NOTE | 2018-01-01 01:30 | NUR ---
PT APPEARS TO BE SLEEPING, EYES CLOSED, BREATHING NON-LABORED, PT NOT MOVING EXTREMITIES, APPEARS COMFORTABLE. ON ROOM AIR. BED ALARM ON.
--- NOTE | 2018-01-01 03:40 | NUR ---
PT MOVING AROUND IN BED, APPEARS UNCOMFORTABLE PRN PAIN MEDICATIONS ADMINISTERED. PT INCONTINENT OF STOOL, PRN ATIVAN ADMINISTERED FOR PT AGITATION. ATTENDS CHANGED. BARRIER CREAM APPLIED TO PTS BUTTOCKS. BOWEL TONES HYPERACTIVE X 4, CONTINUES TO HAVE LIQUID BM, ATTENDS IN PLACE. LUNGS CLEAR. HR IRREGULAR. PT REPOSITIONED FOR COMFORT, ARM ELEVATED ON PILLOW. 1+ EDEMA NOTED LEFT HAND, WARM TO TOUCH, CAP REFILL <3, DRESSING IN PLACE. BED ALARM IN PLACE, CURTAIN OPEN FOR CLOSE VIEW FROM NURSES STATION FOR PT SAFETY.
--- NOTE | 2018-01-01 05:23 | NUR ---
PT INCONTINENT OF STOOL AND URINE THROUGHOUT SHIFT, ATTENDS IN PLACE. PT DROWSY, RECEIVED SCHEDULED AND PRN ATIVAN X 1 THIS SHIFT. PRN PAIN MEDICATION ADMINISTERED X 2. PO PILLS HELD FOR PT SAFETY. NO IV ACCESS. IN BED THROUGHOUT SHIFT. MINIMAL ORAL INTAKE THIS SHIFT, FLUIDS OFFERED THROUGHOUT SHIFT.
--- NOTE | 2018-01-01 09:49 | NUR ---
NOTIFIED PROVIDER AND CHARGE NURSE THAT PT IS NOT ROUSABLE WITH STERNAL RUBBING. DAUGHTER AT BEDSIDE. WHEN PT WAKES WILL DO ALL PO MEDS CRUSHED, VERIFIED MEDS ARE SAFE TO CRUSH WITH PHARMACY. WILL HOLD MEDICATIONS UNTIL PT IS AWAKE ENOUGH TO TAKE. LEFT HAND IS SWOLLEN WITH ECCYMOTIC FINGERS, CAP REFILL BRISK, HAND IS WARM TO TOUCH. FAMILY HAS REQUESTED THAT PT NOT RECEIVE ELIQUIS, NOTIFIED PROVIDER. NOT CURRENTLY ON MEDICATION LIST.
--- NOTE | 2018-01-01 12:22 | NUR ---
DR GARCIA HAD JUST BEEN WITH PT AND HER DAUGHTER. DECISION WAS MADE TO PLACE PT ON COMFORT CARE. DAUGHTER MENTIONED THAT SHE WOULD LIKE TO VISIT WITH ME, AFTER 1300 HRS REGARDING FURTHER FINAL ARRANGEMENTS FOR PT. WILL BE AVAILABLE
[2018-01-01] MEDS ORDERED: HYDROCODONE-ACE15 M3 PO (12:30)
[2018-01-01] MEDS ORDERED: OLANZAPINE ODT10 MG PO (12:31)
[2018-01-01] MEDS ORDERED: LORAZEPAM INT2 MG/ML SL (12:32)
[2018-01-01] MEDS ORDERED: DILAUDID1 MG/ML SL (12:40)
--- NOTE | 2018-01-01 13:30 | NUR ---
THE NURSE AND I CHANGED HER AND HER BED LINENS. ALSO GAVE HER BED BATH. WHEN THE GOLF BALL INSPECTOR GOT HERE THE NURSE AND I HELPED PUT HER ON THE GURNEY.
--- NOTE | 2018-01-01 13:57 | NUR ---
PT DAUGHTER AT BEDSIDE. PT HAS NOT BEEN AWAKE THUS FAR DURING SHIFT. PT HAS BEEN CHECKED BY RN AND RESEARCH MANAGEMENT ASSOCIATE Q2 HOURS FOR LEAKAGE IN ATTENDS, FULL BED CHANGE PERFORMED AND BED BATH GIVEN. GAVE REPORT TO ONEIDA MENDES AT [place], NOTIFIED PROVIDER THAT O2 ORDERS NEED TO ACCOMPANY THE PATIENT. PT WAS PUT ON COMFORT CARE THIS AFTERNOON. PT MEDICATED FOR PAIN ONCE, PT IS RESTING COMFORTABLY, NO ATIVAN GIVEN THIS SHIFT. WILL CONTINUE TO MONITOR.
--- NOTE | 2018-01-01 15:01 | NUR ---
PT IS BEING TRANSFERRED VIA EMS, GAVE REPORT TO PERSONNEL. CALLED FACILITY TO UPDATE THEM THAT PT WAS SUCCESSFULLY MEDICATED FOR PAIN AT 1100, ATTEMPTED TO MEDICATE THIS AFTERNOON BUT SWALLOW WAS NOT INTACT, DEEMED INAPPROPRIATE TO GIVE MEDS AT THIS TIME. PT ON COMFORT CARE, NO ANTIHYPERTENSIVES GIVEN TODAY, PT HAD ELEVATED BP AT DISCHARGE. DAUGHTER AT BEDSIDE. PT LEFT THE UNIT AT APPROXIMATELY 1500.
== END 2018-01-01 15:00 | DRG 510 ==
LOC: ED 10:43 → MS 14:37
PROVIDERS: Orthopaedic Surgery; ADMIT Internal Medicine
PROC: 3E0T3BZ Introduction of Anesthetic Agent into Peripheral Nerves and Plexi, Percutaneous Approach (ICD-10-PCS; 2017-12-30)
PROC: 3E0T33Z Introduction of Anti-inflammatory into Peripheral Nerves and Plexi, Percutaneous Approach (ICD-10-PCS; 2017-12-30)
PROC: 0PSJ04Z Reposition Left Radius with Internal Fixation Device, Open Approach (ICD-10-PCS; principal; 2017-12-30 10:30)
DX: S52.532A Colles' fracture of left radius, initial encounter for closed fracture (principal); G93.41 Metabolic encephalopathy; N17.9 Acute kidney failure, unspecified; F02.81 Dementia in other diseases classified elsewhere, unspecified severity, with behavioral disturbance; J84.9 Interstitial pulmonary disease, unspecified; Z51.5 Encounter for palliative care; G30.9 Alzheimer's disease, unspecified; G89.18 Other acute postprocedural pain; I25.10 Atherosclerotic heart disease of native coronary artery without angina pectoris; R07.9 Chest pain, unspecified; I48.2 Chronic atrial fibrillation; M41.9 Scoliosis, unspecified; I12.9 Hypertensive chronic kidney disease with stage 1 through stage 4 chronic kidney disease, or unspecified chronic kidney disease; N18.3 Chronic kidney disease, stage 3 (moderate); E78.5 Hyperlipidemia, unspecified; F39 Unspecified mood [affective] disorder; K21.9 Gastro-esophageal reflux disease without esophagitis; I27.20 Pulmonary hypertension, unspecified; W19.XXXA Unspecified fall, initial encounter; Z87.891 Personal history of nicotine dependence; Y92.099 Unspecified place in other non-institutional residence as the place of occurrence of the external cause; Z88.5 Allergy status to narcotic agent; Z95.1 Presence of aortocoronary bypass graft; Z88.2 Allergy status to sulfonamides; Z88.8 Allergy status to other drugs, medicaments and biological substances; Z79.02 Long term (current) use of antithrombotics/antiplatelets; Z79.82 Long term (current) use of aspirin; Z79.891 Long term (current) use of opiate analgesic; Z79.51 Long term (current) use of inhaled steroids; Z79.899 Other long term (current) drug therapy
CPT/HCPCS: 36415; 64417; 71045; 76942; 80048; 80053; 80162; 81001; 83735; 83880; 84100; 84484; 85025; 85610; 87088; 93005; 93010; 94640; 94760; C1713; J0690; J0696; J1100; J1170; J1630; J2060; J2250; J2704; J2795; J3010; J7040; J7120